=== PATIENT | female | born 1995 | race Caucasian/White ===

== ENCOUNTER → 2019-10-10 | Outpatient (CLI) | payer OTHER ==
[2019-10-10 13:41] LABS: BASO % 0.4 % (0.0-1.0); EOS % 0.7 % (0.0-3.0); HEMATOCRIT 37.2 % (36.0-47.0); HEMOGLOBIN 12.1 g/dl (12.0-15.5); LYMPH # 1.6 10^3/uL (1.5-5.0); MEAN CORPUSCULAR HGB CONC 32.5 g/dl (32.0-36.5); MEAN CORPUSCULAR VOLUME 92.1 fl (80.0-96.0); MONO # 0.3 10^3/uL (0.0-0.8); MONO % 6.3 % (0.0-5.0); NEUTROPHILS # 3.4 10^3/uL (1.5-8.5); NEUTROPHILS % 63.4 % (36.0-66.0); PLATELET COUNT, AUTOMATED 203 10^3/uL (150-450); RED BLOOD COUNT 4.04 10^6/uL (4.00-5.40); WHITE BLOOD COUNT 5.4 10^3/uL (4.0-10.0)
[2019-10-10 14:21] LABS: ALT/SGPT 27 U/L (12-78); BILIRUBIN,TOTAL 0.4 MG/DL (0.2-1.0); BLOOD UREA NITROGEN 13 MG/DL (7-18); CALCIUM LEVEL 9.1 MG/DL (8.5-10.1); CARBON DIOXIDE LEVEL 25 MEQ/L (21-32); CHLORIDE LEVEL 106 MEQ/L (98-107); CHOLESTEROL LEVEL 220 MG/DL (<200); CHOLESTEROL RISK RATIO 2.933 (<5); CREATININE FOR GFR 1.05 MG/DL (0.55-1.30); FREE T4 0.97 NG/DL (0.76-1.46); GLOMERULAR FILTRATION RATE > 60.0 (>60); GLUCOSE, FASTING 92 MG/DL (70-100); HDL CHOLESTEROL 75 MG/DL (>40); LDL CHOLESTEROL 119 MG/DL (<100); NON-HDL-C 145 MG/DL; POTASSIUM SERUM 4.4 MEQ/L (3.5-5.1); SODIUM LEVEL 137 MEQ/L (136-145); TOTAL PROTEIN 7.4 GM/DL (6.4-8.2); TRIGLYCERIDES LEVEL 130 MG/DL (<150)
== END ==
LOC: M PLALAB 11:29
PROVIDERS: ATTEND Physician Assistant Medical
DX: I16.0 Hypertensive urgency (principal); F41.9 Anxiety disorder, unspecified; Z13.220 Encounter for screening for lipoid disorders

== ENCOUNTER → 2019-11-07 | Outpatient (CLI) | payer OTHER ==
--- NOTE | 2019-11-07 08:52 | REP ---
Urinary tract sonography with renal artery Doppler assessment: History: Hypertensive urgency. Morphologic findings: Renal cortical echogenicity pattern is normal and contours are smooth. No hydronephrosis is seen. No cyst or mass is observed in either kidney. The right kidney measures 9.5 x 4.3 x 3.7 cm. Left renal dimensions are 9.9 x 3.9 x 5.3 cm. Emptying ureteral jets are confirmed bilaterally on color Doppler interrogation of the urinary bladder. Visualized bladder [place] are smooth. Renal artery Doppler flow study findings: The systolic flow velocity in the abdominal aorta is normal at 132 cm/sec. Peak systolic flow velocity in the left main renal artery is 118 cm/sec and that in the right 106 cm/sec. These are not values are normal. Renal to aortic flow velocity ratios are therefore normal as well measured at 0.8 on the right and 0.9 on the left. Resistive indices and acceleration times are measured in the intralobar arteries of the upper, mid, and lower pole of each kidney and these values are bilaterally normal as well. Impression: No morphologic abnormality. No renal artery Doppler evidence to suggest renal artery stenosis. Electronically Signed by Critso Montano MD 11/07/2019 08:43 A
== END ==
LOC: M RAD 07:17
PROVIDERS: ATTEND Physician Assistant Medical
DX: I16.0 Hypertensive urgency (principal)